=== PATIENT | female | born 1995 | race Caucasian/White ===

== ENCOUNTER 2022-01-12 08:07 | Emergency (ER) | payer BC, OTHER ==
[2022-01-12] MEDS ORDERED: Boostrix 0.5 ML (Tdap) VIAL ONE (08:46)
[2022-01-12] MEDS ORDERED: Ibuprofen 200 MG TAB ONE (09:39)
[2022-01-12] MEDS ORDERED: Bacitracin 1 PK ONE (09:39)
== END 2022-01-12 10:05 | disposition home or self-care (01) ==
LOC: CSHERS 08:07
DX: S90.02XA Contusion of left ankle, initial encounter (principal); S90.812A Abrasion, left foot, initial encounter; S80.212A Abrasion, left knee, initial encounter; V23.4XXA Motorcycle driver injured in collision with car, pick-up truck or van in traffic accident, initial encounter; Y93.55 Activity, bike riding
CPT/HCPCS: 90471; 90715; G0390